=== PATIENT | female | born 1975 ===

== ENCOUNTER 2020-05-20 15:07 | Emergency (ER) | payer OTHER ==
[~2020-05-20] VITALS: Ht 165.1 cm; Wt 83.9 kg
[2020-05-20] MEDS ORDERED: PROMETRIUM200 MG PO (15:24)
== END 2020-05-21 00:15 | disposition home or self-care (01) ==
LOC: ER 15:07
DX: J03.80 Acute tonsillitis due to other specified organisms (principal)